=== PATIENT | female | born 1990 | race Caucasian/White ===

== ENCOUNTER → 2021-01-22 13:51 | Outpatient (CLI) | payer BC, SELFPAY | PROVIDERS: PCP Family Medicine; Visit Provider Nurse Practitioner | DX: Z11.1 Encounter for screening for respiratory tuberculosis (principal) | CPT/HCPCS: 86580 ==

== ENCOUNTER → 2021-07-06 08:46 | Outpatient (CLI) | payer BC, SELFPAY | PROVIDERS: PCP Family Medicine; Visit Provider Nurse Practitioner | DX: U07.1 COVID-19 (principal) | CPT/HCPCS: C9803; U0003; U0005 ==

== ENCOUNTER 2021-12-29 11:05 | Outpatient (CLI) | payer BC, SELFPAY ==
[2021-12-29 10:06] VITALS: BMI 27.3
--- NOTE | 2021-12-29 11:10 | PC.NURSE ---
i spoke with glenn in [facility] and informed her [facility] would not allow me to take pt off the tracker d/t the way pt was registered. glenn states she will look into it and take pt off the tracker.
== END 2021-12-29 11:35 | disposition home or self-care (01) ==
LOC: UTC.OUT 11:05
PROVIDERS: PCP Family Medicine; Visit Provider Nurse Practitioner Family
DX: Z11.1 Encounter for screening for respiratory tuberculosis (principal)
CPT/HCPCS: 86580

== ENCOUNTER 2022-05-14 16:31 | Emergency (ER) | payer BC, SELFPAY ==
--- NOTE | 2022-05-14 18:08 | EXP.UTC ---
Discharge Plan Disposition Patient Disposition: Home, Self-Care Condition: Good Prescriptions Prescriptions: New ibuprofen [IBU] 800 mg tablet 800 mg PO Q8HP PRN (Reason: Moderate Pain) Qty: 30 0RF Referrals Follow up/Referrals: Prabhu Miller JR, MD [Physician] - See instructions Donny Smiley MD [Primary Care Provider] - See instructions Activity Restrictions/Add. Instructions Additional Instructions/Restrictions: Rest the extremity, apply ice for 15 minutes as tolerated three or four times per day, Elevate the extremity as tolerated while you are resting. Take ibuprofen for pain. I sent in a prescription to your pharmacy. Follow up with Dr. Miller (orthopedics). I put in a referral but you need to call his office on Monday morning and schedule an appointment. Follow up with your regular doctor. GO TO THE ER FOR ANY WORSENING SYMPTOMS Clinical Impressions Clinical Impression: Distal radial fracture Instructions Patient Instructions: DI for Distal Radius Fracture Discharge ED Provider: Ramakrishna Holland [facility] General Stated complaint: AO 05/14 1515 FELL ON RIGHT HAND Time Seen by Provider: 05/14/22 18:08 History of Present Illness Provider Complaint: She took her daughter red watters today. She fell backwards and came down on her right hand and wrist. She has had right wrist pain since then. Related Data Previous Rx's Medication Instructions Recorded ibuprofen 800 mg tablet (IBU) 800 mg PO Q8HP PRN Moderate Pain 05/14/22 #30 tabs Allergies Allergy/AdvReac Type Severity Reaction Status Date / Time No Known Allergies Allergy Verified 05/14/22 18:15 [facility] Disclaimer: The information contained in this section may have been updated after the patient was seen, as this information can be updated by other users. Social History Smoking Status: Never smoker alcohol intake: never current occupational status: employed Travel in the last 8 weeks: None ROS Obtained: Yes All systems reviewed & no additional complaints except as documented Constitutional Constitutional: Denies chills and Denies fever(s) Integumentary/Breasts Skin/Breast: Denies redness, Denies rash and Denies wounds Neurologic Neurologic: Denies paresthesias Physical Exam General General appearance: alert and in no apparent distress Head Head exam: atraumatic, normocephalic and normal inspection Eye Eye exam: Present normal appearance, PERRL and EOMI ENT ENT exam: Present normal exam, normal oropharynx, mucous membranes moist, TM's normal bilaterally and normal external ear exam Neck Neck exam: Present normal inspection, full ROM and trachea midline; Absent meningismus or lymphadenopathy Chest Chest inspection: Present normal inspection and symmetric chest wall rise; Absent tenderness Respiratory Respiratory exam: Present normal lung sounds bilaterally; Absent respiratory distress Cardiovascular Cardiovascular exam: Present regular rate and normal rhythm; Absent JVD Abdominal Exam Abdominal exam: Present soft and normal bowel sounds; Absent distention, tenderness or guarding Extremities Exam Extremities exam: Present normal capillary refill; Absent calf tenderness Expanded Upper Extremity Exam Right: Elbow exam: Present normal inspection and full ROM; Absent tenderness Forearm/Wrist exam: Present tenderness and swelling; Absent full ROM, abrasion, laceration, ecchymosis, deformity, crepitus, dislocation, erythema, tenderness over anatomical snuff box or pain with axial thumb loading Hand exam: Present normal inspection and full ROM; Absent tenderness Neuromotor exam: Normal wrist extension and thumb opposition Neurosensory exam: Normal radial nerve and ulnar nerve Vascular exam: Normal capillary refill, radial pulse and ulnar pulse Back Exam Back exam: Present normal inspection; Absent tenderness Neurol
--- NOTE | 2022-05-14 18:10 | XR_ITS ---
PROCEDURE INFORMATION: Exam: XR Right Wrist Exam date and time: 05/14/2022 6:10 PM Age: 31 years old Clinical indication: Injury or trauma; Fall TECHNIQUE: Imaging protocol: Radiologic exam of the Right wrist. Views: 3 or more views. COMPARISON: CR Hand R 05/14/2022 6:08 PM FINDINGS: Bones/joints: There is a linear lucency projecting through the articular surface of the distal radius on 1 of the three views suspicious for nondisplaced hairline fracture. Remaining osseous structures are unremarkable. Alignment is maintained. Soft tissues: Unremarkable. IMPRESSION: Findings suspicious for nondisplaced hairline fracture distal radius which could be confirmed on follow-up imaging or CT examination of the wrist.
--- NOTE | 2022-05-14 18:10 | XR_ITS ---
PROCEDURE INFORMATION: Exam: XR Right Hand Exam date and time: 05/14/2022 6:08 PM Age: 31 years old Clinical indication: Injury or trauma; Fall TECHNIQUE: Imaging protocol: Radiologic exam of the Right hand. Views: 3 or more views. COMPARISON: No relevant prior studies available. FINDINGS: Bones/joints: Normal. No fracture or malalignment. Joint surfaces preserved. Soft tissues: Normal. IMPRESSION: Normal examination right hand.
[2022-05-14 18:13] VITALS: BP 152/89; PULSE 81; RESP 16; TEMP 36.8; O2SAT 99; BMI 29.2
[2022-05-14 19:47] VITALS: BP 153/89; PULSE 81; RESP 16; TEMP 36.8
== END 2022-05-14 19:47 | disposition home or self-care (01) ==
PROVIDERS: Emergency Provider Nurse Practitioner Family; PCP Family Medicine
DX: S52.501A Unspecified fracture of the lower end of right radius, initial encounter for closed fracture (principal); Z79.1 Long term (current) use of non-steroidal anti-inflammatories (NSAID); W17.89XA Other fall from one level to another, initial encounter
CPT/HCPCS: 29105; 73110; 73130; 99213; G0463

== ENCOUNTER 2022-05-18 16:26 | Outpatient (RCR) | payer BC, SELFPAY | END 2022-05-18 17:30 | disposition home or self-care (01) | LOC: PT 16:26 | PROVIDERS: Visit Provider Orthopaedic Surgery | DX: M25.531 Pain in right wrist (principal); S52.501D Unspecified fracture of the lower end of right radius, subsequent encounter for closed fracture with routine healing | CPT/HCPCS: 97760 ==

== ENCOUNTER → 2022-05-27 14:34 | Outpatient (CLI) | payer BC, SELFPAY ==
--- NOTE | 2022-05-27 14:38 | XR_ITS ---
FINAL REPORT CLINICAL HISTORY: wrist fracture f/u COMPARISON: 05/14/2022 FINDINGS: RIGHT WRIST Three views demonstrate a nondisplaced fracture of the base of the radial styloid without significant callus formation. There has been no change in alignment. No new fracture is identified. Soft tissues are unremarkable. IMPRESSION: No significant interval change in fracture of the base of the radial styloid. Reviewed, Interpreted and Dictated by Henri Boggs III, MD Transcribed by Татьяна Nava Authenticated and [facility]
== END ==
PROVIDERS: PCP Family Medicine; Visit Provider Orthopaedic Surgery
DX: M25.531 Pain in right wrist (principal); S52.501A Unspecified fracture of the lower end of right radius, initial encounter for closed fracture
CPT/HCPCS: 73110

== ENCOUNTER → 2022-06-15 14:10 | Outpatient (CLI) | payer BC, SELFPAY ==
--- NOTE | 2022-06-15 14:14 | XR_ITS ---
FINAL REPORT CLINICAL HISTORY: wrist fx COMPARISON: May 27, 2022 FINDINGS: RIGHT WRIST Three views of the right wrist were obtained. An oblique distal radial styloid fracture without displacement is again noted. The fracture line is less distinct with some sclerosis indicating a healing fracture. No new abnormality is identified. The visualized joint spaces are normally aligned. The joint spaces are intact. The soft tissues are unremarkable. IMPRESSION: Healing radial styloid fracture. Reviewed, Interpreted and Dictated by Twila Anguiano MD Transcribed by Deanna Martinez Authenticated and [facility]
== END ==
PROVIDERS: PCP Family Medicine; Visit Provider Orthopaedic Surgery
DX: S52.501A Unspecified fracture of the lower end of right radius, initial encounter for closed fracture (principal)
CPT/HCPCS: 73110

== ENCOUNTER 2022-12-17 11:39 | Emergency (ER) | payer BC, SELFPAY ==
[2022-12-17 11:50] VITALS: BP 129/88; PULSE 74; RESP 18; TEMP 36.6; O2SAT 98; BMI 30.7
[2022-12-17 12:11] LABS: UTC Strep Screen (Rapid) Negative (Negative)
--- NOTE | 2022-12-17 12:27 | EXP.UTC ---
Discharge Plan Disposition Patient Disposition: Home, Self-Care Condition: Good Prescriptions Prescriptions: New azithromycin [azithromycin] 250 mg tablet 250 mg PO DIRECTED Qty: 6 0RF Rx Instructions: Take two (2) tablets on day #1, then one (1) tablet day #2 thru #5 Referrals Follow up/Referrals: Donny Smiley MD [Primary Care Provider] - See instructions Activity Restrictions/Add. Instructions Additional Instructions/Restrictions: Start antibiotics today be sure to take it as ordered with the full length of time although you should start feeling better in 24-48 hours. Change toothbrush and toothpaste 24-48 hours after starting antibiotics Tylenol or Motrin as needed for fever or pain Encourage fluids, water, Gatorade, Powerade, try cold fluids, popsicles, ice cream will make it feel better You are contagious for 24 hours. Avoid kissing anyone, no eating or drinking after anyone. You are contagious. Follow-up the ER for new or worsening symptoms or no noticeable improvement over the next 24-48 hours. Follow-up with PCP this week. Clinical Impressions Clinical Impression: Strep sore throat Instructions Patient Instructions: DI for Strep Throat Discharge ED Provider: Gabi ([facility])Adrian [facility] [place] General Stated complaint: Sore throat cough Mode of Arrival: Ambulatory Source of Information: Patient Limitations: No Limitations Time Seen by Provider: 12/17/22 12:27 Description of Symptoms (Recalled from Triage Doc. by RN): PATIENT C/O SORE THROAT AND COUGH SINCE YESTERDAY HEENT Symptoms (Recalled from RN notes): Yes Resp Symptoms (Recalled from RN notes): Yes Skin Symptoms (Recalled from RN notes): No MS Symptoms (Recalled from RN notes): No Functional Status (Recalled from RN notes): WNL History of Present Illness Provider Complaint: 32 yr old female presents for sore throat and cough that started yesterday Related Data Previous Rx's Medication Instructions Recorded azithromycin 250 mg tablet 250 mg PO DIRECTED #6 tabs 12/17/22 Allergies Allergy/AdvReac Type Severity Reaction Status Date / Time No Known Allergies Allergy Verified 06/15/22 14:39 Worker's Comp Is this a Worker's Comp case?: [facility] Dis[facility]: The information contained in this section may have been updated after the patient was seen, as this information can be updated by other users. Social History , [employer]) Smoking Status: Never smoker alcohol intake: never current occupational status: employed Travel in the last 8 weeks: None ROS Obtained: Yes All systems reviewed & no additional complaints except as documented Constitutional Constitutional: Reports system reviewed and no additional complaints, except as documented Eyes Eyes: Reports system reviewed and no additional complaints, except as documented ENT Ears, Nose, Mouth, and Throat: Reports system reviewed and no additional complaints, except as documented and Reports sore throat Cardiovascular Cardiovascular: Reports system reviewed and no additional complaints, except as documented Respiratory Respiratory: Reports system reviewed and no additional complaints, except as documented Musculoskeletal Musculoskeletal: Reports system reviewed and no additional complaints, except as documented Integumentary/Breasts Skin/Breast: Reports system reviewed and no additional complaints, except as documented Neurologic Neurologic: Reports system reviewed and no additional complaints, except as documented Endocrine Endocrine: Reports system reviewed and no additional complaints, except as documented Hematologic/Lymphatic Henatologic/Lymphatic: Reports system reviewed and no additional complaints, except as documented Allergic/Immunologic Allergic/Immunologic: Reports system reviewed and no additional complaints, except as documented Physical Exam General General appearance: alert and in no
[2022-12-17 12:40] VITALS: BP 129/88; PULSE 74; RESP 18; TEMP 36.6; O2SAT 98
== END 2022-12-17 12:43 | disposition home or self-care (01) ==
PROVIDERS: Emergency Provider Nurse Practitioner Family; PCP Family Medicine
DX: J02.0 Streptococcal pharyngitis (principal)
CPT/HCPCS: 87880; 99212; 99214; G0463